=== PATIENT | female | born 1985 | race Caucasian/White ===

== ENCOUNTER 2022-04-26 12:33 | Outpatient (CLI) | payer BC | END 2022-04-26 23:59 | disposition home or self-care (01) | LOC: CARD DIAG 12:33 | PROVIDERS: ATTEND Physician Assistant | DX: I08.1 Rheumatic disorders of both mitral and tricuspid valves (principal); R00.0 Tachycardia, unspecified; J45.909 Unspecified asthma, uncomplicated; Z87.891 Personal history of nicotine dependence; Z79.899 Other long term (current) drug therapy | CPT/HCPCS: 93306; 94060; 94727; 94729; 94760 ==

== ENCOUNTER 2025-08-24 17:45 | Emergency (ER) | payer BC ==
[~2025-08-24] VITALS: Ht 175.3 cm; Wt 113.0 kg
--- NOTE | 2025-08-24 19:31 | Physician Documentation ---
History of Present Illness ~ Chief Complaint: Asthma Stated Complaint: ASTHMA Time Seen by MD: 19:27 Primary Medical Doctor: MATT ESTRADA Mode of Arrival: POV, Ambulatory HPI Patient with history of asthma presents to the emergency room shortness of breath. She states her asthma has been exacerbated over this past week but over the last two days she coughs and feels she may have aspirated. She states she has not been having any wheezing but it has been coughing up thick mucus which is worsening. Medication Reconciliation Allergies: Coded Allergies: morphine (Verified Allergy, Unknown, 08/24/25) Scheduled Azithromycin (Zithromax), 250 MG PO DAILY Prednisone* (Prednisone*), 1 TAB PO DAILY Review of Systems ROS All review of systems negative except as per HPI Physical Exam Vital Signs: Temperature: 97.8, Source: Temporal, Heart Rate: 95, Respiratory Rate: 16, BP: 148/85, Pulse Oximetry: 96, Weight: 113.000 Oxygen Flow Rate: 0 Physical Exam General: Patient is awake, alert, oriented x4 in no acute distress Head: Normocephalic and atraumatic. Eyes: Conjunctival normal. EOMI. PERRL. ENT: Mucous membranes moist. Neck: Supple, trachea is midline. Chest: Clear to auscultation bilaterally without rales, rhonchi, or wheezes. There is no accessory muscle use or retractions. Cardiac: RRR without murmurs, gallops, or rubs. . Progress Results/Orders Results/Orders Orders - DAVID DAY MD Chest,Single View (08/24/25 19:34) Completed Orders - DAVID DAY MD Chest,Single View (08/24/25 19:34) Vital Signs 08/24/25 08/24/25 17:54 18:08 Temp 97.8 Pulse 95 Resp 16 16 B/P (MAP) 148/85 Pulse Ox 96 O2 Flow Rate 0 Medical Decision Making Additional information obtaine: old records Findings Patient presents to the emergency room with cough cold congestion symptoms as per HPI. Differentials include but are not limited to viral syndrome, pneumonia, sinusitis, heart failure. Chest x-ray is reassuring with a reassuring cardiac silhouette I do not feel patient requires emergent labs or imaging. We will treat her with small course of steroids that has well as Z-Og with ER precautions discussed. Patient demonstrates excellent insight Heart Score: 0 Differential Dx:Considerations: Include: anxiety, asthma, bronchitis, cardiogenic shock, CHF, COPD, dysrhythmia, hypertension, accelerated, hypertension, essential, hypertension, malignant, hyperventilation, hyponatremia, myocardial infarction, panic attack, pneumonia, pneumonitis, pneumothorax, PSVT, pulmonary embolism, respiratory distress, respiratory failure, sinusitis, upper resp. infection, other Departure Disposition: HOME / SELF CARE / HOMELESS Impression: Primary Impression: Acute respiratory infection Condition: Stable Discharge Instructions: Upper Respiratory Infection, Adult Referrals: NO PRIMARY CARE PROVIDER (PCP) Prescriptions Prednisone* (Prednisone*) 20 Mg Tablet 1 TAB PO DAILY for 5 Days, #5 TAB Prov: DAVID DAY MD 08/24/25 Azithromycin (Zithromax) 250 Mg Tablet 250 MG PO DAILY, #6 TAB Take 2 tabs on day one, one tab daily thereafter Prov: DAVID DAY MD 08/24/25 Signature Scribe Signature: No scribe Attestation: The note accurately reflects work and decisions made by me.David Day MD 08/24/25 19:44 DAVID DAY MD Aug 24, 2025 19:31
--- NOTE | 2025-08-24 19:42 | RADIOLOGY REPORT ---
CHEST RADIOGRAPH REASON FOR EXAM: Shortness of breath COMPARISON: None TECHNIQUE: One view of the chest is provided FINDINGS: The cardiomediastinal silhouette is within normal limits for technique. There is no focal airspace disease. There is no significant pleural effusion. No acute bony abnormality is identified. IMPRESSION: No radiographic evidence of acute cardiopulmonary process.
[2025-08-24] MEDS ORDERED: AZIT-164 PO (19:43)
[2025-08-24] MEDS ORDERED: PRED20TA PO (19:43)
[2025-08-24 19:45] VITALS: BP 144/82; PULSE 72; RESP 16; O2SAT 99
[2025-08-24 19:46] VITALS: TEMP 97.8
== END 2025-08-24 19:48 | disposition home or self-care (01) ==
LOC: ER 17:46
DX: J22 Unspecified acute lower respiratory infection (principal); J45.909 Unspecified asthma, uncomplicated; Z88.5 Allergy status to narcotic agent; Z79.899 Other long term (current) drug therapy
CPT/HCPCS: 71045; 99283